=== PATIENT | male | born 1960 | race Caucasian/White ===

== ENCOUNTER 2021-01-06 07:12 | Day surgery (SDC) | payer BC ==
[~2021-01-06] VITALS: Ht 188 cm; Wt 90.7 kg
[~2021-01-06 07:12] MED LIST: ASPIRIN EC81 MG PO; IMODIUM A-D2 M2 PO; NEXIUM20 MG PO; NORCO 5-325 TA1 EACH PO; OXYCODON-ACETA1 EAC2 PO; PEPCID20 MG PO; PRILOSEC OTC20 MG PO; PRILOSEC20 MG PO; TRAMADOL HCL50 MG PO
[2021-01-06] MEDS ORDERED: COLESTID1 GM PO (07:37)
--- NOTE | 2021-01-06 08:58 | NUR ---
01/06/21 0858 Iona Elise 0853 PATIENT ARRIVES TO PACU AWAKE BUT DROWSY. RESP EVEN AND UNLABORED, NC OFF ON ARRIVAL TO PACU. PATIENT DENIES PAIN OR NAUSEA.
--- NOTE | 2021-01-07 11:49 | OR ---
[facility] [address] [place], [place] [address] Signed DATE OF OPERATION: 01/06/2021 SURGEON: Kristen Romero MD PREOPERATIVE DIAGNOSES: 1. Diarrhea probably cholecystectomy related. 2. Longstanding history of gastroesophageal reflux. POSTOPERATIVE DIAGNOSES: 1. Poor flap valve consistent with hiatal hernia. No evidence of active esophagitis. Minimal gastric polyps. 2. Normal-appearing colon. PROCEDURES: 1. Esophagogastroduodenoscopy with biopsy. 2. Total colonoscopy of cecum with biopsy of cecum and rectum. ANESTHESIA: Intravenous sedation, fentanyl 150 mcg and Versed 8 mg. INDICATIONS: This 60-year-old white man is a patient of Dr. Imtiaz William. He is known to me from the past. The patient is known to have gastroesophageal reflux and hiatal hernia. His usual regimen is to take Pepcid as needed, occasionally Prilosec, but usually he takes nothing and his symptoms are only episodic. He has no associated dysphagia currently. Additionally, the patient has undergone cholecystectomy in the past. Over time, he has developed what appeared to be post cholecystectomy diarrhea. This was well managed with Questran, subsequently colestipol. 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 He has no family history of colon cancer or of inflammatory bowel disease that we are aware of. He is admitted at this time to undergo upper endoscopy and colonoscopy. He understands the risks of bleeding, infection, perforation. FINDINGS: Upper endoscopy demonstrated a poor flap valve, but normal esophagus, only mild inflammation. The stomach with a few small hyperplastic gastric polyps. The duodenum was normal. CLOtest was negative 30 minutes post procedure. Electronically Signed By: KRISTEN ROMERO MD 01/07/21 1149 PATIENT NAME: SHIKHA LOPEZ OPERATIVE REPORT DATE OF : 60 REPORT #: [id number] PHYSICIAN: KRISTEN ROMERO MD PCP: IMTIAZ WILLIAM MD REPORT IS CONFIDENTIAL AND NOT TO BE RELEASED WITHOUT AUTHORIZATION [facility] [address] [place], [place] [address] Signed On colonoscopy, the prep was good. Complete colonoscopy was undertaken of the cecum. There was no evidence active inflammation, no diverticulosis, and certainly no polyps or cancer. Biopsies were obtained of the cecum and rectum to assess for occult colitis. PROCEDURE IN DETAIL: The patient was brought to the endoscopy suite and given topical lidocaine spray anesthesia, placed in lateral decubitus position. He was given intravenous sedation upon slurred speech and nystagmus with full cardiopulmonary monitoring. A bite block was placed. An Olympus video upper endoscope was passed into the hypopharynx. The vocal cords appeared normal. Scope was advanced to the esophagus throughout its length, it was normal without any sign of Arrington epithelium stricture, neoplasm, or varices. The scope was passed to the stomach, which was insufflated with air. Rugal folds were normal. There were few scattered very small polyps, hyperplastic in appearance. Pylorus was normal. Scope was passed through into the duodenum, which was normal. Biopsies were taken of the duodenum to assess for celiac disease. The scope was then withdrawn to the stomach and biopsies taken from the antrum and mid stomach for both DENNIS and pathologic testing. Retroflexed view was undertaken showing a poor flap valve, easily effaced by withdrawal of the scope in a J maneuver. The scope was withdrawn to the distal esophagus and biopsies obtained of that mucosa though it was normal. The midesophagus was additionally biopsied, though appeared normal. The scope was removed. Plans were then made for colonoscopy. In the lateral decubitus position, digital rectal examination was undertaken showing no anorectal abnormality. An Olympus video colonoscope was passed in the rectum and manipulated throughout the colon, ultimately intubating the cecum itself. The ileocecal valve and appendiceal orifice were normal. Biopsies were obtained to assess for occult colitis, given his diarrhea history. The scope was carefully withdrawn, examination throughout showed no sign of abnormality specifically no polyps, diverticular formation, colitis, or cancer. Retroflexed view of the rectum was normal. Biopsies were taken of the rectum to assess complete resolution of his prior proctitis. The patient was taken to recovery room in good condition. CONCLUDING DIAGNOSES: 1. Longstanding gastroesophageal reflex, not progressing. Symptom control primarily by Pepcid occasion by Prilosec. Other than operative management, this medical approach is acceptable to him at this time. 2. Colon with diarrhea, well controlled by colestipol. We would have him continue that medication. There is no evidence of colitis on the gross examination of the colon, certainly no polyps or cancer. We would recommend repeat colonoscopy in 5-10 years. Electronically Signed By: KRISTEN ROMERO MD 01/07/21 1149 PATIENT NAME: SHIKHA LOPEZ OPERATIVE REPORT DATE OF : 60 REPORT #: [id number] PHYSICIAN: KRISTEN ROMERO MD PCP: IMTIAZ WILLIAM MD REPORT IS CONFIDENTIAL AND NOT TO BE RELEASED WITHOUT AUTHORIZATION [address] [address] Signed Certainly, five years of family history of colon cancer was discovered. He will return to the ongoing care of Dr. William. MD CHANA Tai/MODL /[id number] cc: Imtiaz William MD Copies: IMTIAZ WILLIAM MD ~ Electronically Signed By: KRISTEN ROMERO MD 01/07/21 1149 PATIENT NAME: SHIKHA LOPEZ OPERATIVE REPORT DATE OF : 60 REPORT #: [id number] PHYSICIAN: KRISTEN ROMERO MD PCP: IMTIAZ WILLIAM MD REPORT IS CONFIDENTIAL AND NOT TO BE RELEASED WITHOUT AUTHORIZATION
--- NOTE | 2021-01-09 21:20 | PATH ---
[facility] [address] [place], [place] [address] Signed SPECIMEN(S): A DUODENAL BIOPSY SPECIMEN(S): B ANTRUM/PYLORUS BIOPSY SPECIMEN(S): C LOWER ESOPHAGEAL BIOPSY SPECIMEN(S): D MIDDLE ESOPHAGEAL BIOPSY SPECIMEN(S): E CECUM COLON BIOPSY SPECIMEN(S): F RECTUM SPECIMEN SOURCE: A. DUODENAL BIOPSY B. ANTRUM/PYLORUS BIOPSY C. LOWER ESOPHAGEAL BIOPSY D. MIDDLE ESOPHAGEAL BIOPSY E. CECUM COLON BIOPSY F. RECTUM CLINICAL HISTORY: EGD/colonoscopy. Reflux with esophagitis, post-cholecystectomy diarrhea, family history of colon CA. DX: Gastritis, esophagitis, hiatal hernia. MICROSCOPIC DESCRIPTION: Histologic sections of all submitted blocks are examined by light microscopy. These findings, together with the gross examination, support the pathologic diagnosis. FINAL PATHOLOGIC DIAGNOSIS: A. Duodenum, biopsy: - Peptic duodenitis. - Negative for increased intraepithelial lymphocytes or villous blunting. - Negative for dysplasia or malignancy. B. Stomach, antrum/pylorus, biopsy: - Antral mucosa with mild chronic, inactive gastritis. - Negative for Helicobacter organisms on HE stain. - Negative for dysplasia or malignancy. C. Esophagus, lower, biopsy: - Squamous mucosa with reactive changes, consistent with reflux esophagitis. - Negative for intestinal metaplasia, dysplasia or malignancy. D. Esophagus, middle, biopsy: - Squamous mucosa with no histopathologic abnormality. - Fragments of crushed gastric antral type mucosa, see comment. - Negative for increased intraepithelial eosinophils. - Negative for intestinal metaplasia, dysplasia, or malignancy. E. Colon, cecum, biopsy: PATIENT NAME: SHIKHA LOPEZ PATHOLOGY DATE OF : 60 REPORT #: [id number] PHYSICIAN: EUGENIA ALFARO PCP: IMTIAZ ARAUJO MD REPORT IS CONFIDENTIAL AND NOT TO BE RELEASED WITHOUT AUTHORIZATION [facility] [address] [place], [place] [address] Signed - Colonic mucosa with no histopathologic abnormality. - Negative for active, chronic, or microscopic colitis. - Negative for dysplasia or malignancy. F. Rectum, biopsy: - Rectal mucosa with no histopathologic abnormality. - Negative for active or chronic proctitis. - Negative for dysplasia or malignancy. COMMENT: Regarding specimen D: The crushed antral type mucosa could be tissue carryover from previous stomach biopsy. There is no evidence of malignancy. NAL:cml:C2NR GROSS DESCRIPTION: Six specimens are received in six containers, labeled "DJ." A. The specimen, labeled "DJ, 1," and designated on the requisition "duodenum," is received in formalin and consists of two foss soft tissue fragments that measure 0.4 cm in greatest dimension. The specimen is entirely submitted in cassette (A1). B. The specimen, labeled "DJ, 2," and designated on the requisition "antrum/pylorus," is received in formalin and consists of two foss soft tissue fragments that measure 0.2-0.3 cm in greatest dimension. The specimen is entirely submitted in cassette (B1). C. The specimen, labeled "DJ, 3," and designated on the requisition "lower esophagus," is received in formalin and consists of two foss soft tissue fragments that measure 0.4-0.5 cm in greatest dimension. The specimen is entirely submitted in cassette (C1). D. The specimen, labeled "DJ, 4," and designated on the requisition "middle esophagus," is received in formalin and consists of three scanty, foss soft tissue fragments that measure 0.1-0.2 cm in greatest dimension. The specimen is filtered, inked with eosin, and entirely submitted in cassette (D1). E. The specimen, labeled "DJ, 5," and designated on the requisition "cecum colon," is received in formalin and consists of one foss soft tissue fragment that measures 0.3 cm in greatest dimension. The specimen is entirely submitted in cassette (E1). F. The specimen, labeled "DJ, 6," and designated on the requisition "rectum," is received in formalin and consists of three foss soft tissue fragments that measure 0.3 cm in greatest dimension. The specimen is entirely submitted in cassette (F1). PATIENT NAME: SHIKHA LOPEZ PATHOLOGY DATE OF : 60 REPORT #: [id number] PHYSICIAN: EUGENIA ALFARO PCP: IMTIAZ ARAUJO MD REPORT IS CONFIDENTIAL AND NOT TO BE RELEASED WITHOUT AUTHORIZATION [address] [address] Signed AT (under the direct supervision of a pathologist) The Gross Description was prepared using a voice recognition system. The report was reviewed for accuracy; however, sound-alike word errors, addition and/or deletions may occur. If there is any question about this report, please contact Client Services. PERFORMING LABORATORY: The technical component was performed by [employer] [address] [place] [id number] (Machinist [employer]: Brittany Garay MD; CLIA# [id number]). Professional interpretation was performed by [employer], [address] [place] [id number] (CLIA# [id number]). Diagnostician: Zoe Hernandez MD Pathologist Electronically Signed 01/09/2021 Copies: ~ PATIENT NAME: SHIKHA LOPEZ PATHOLOGY DATE OF : 60 REPORT #: [id number] PHYSICIAN: EUGENIA PATHOLOGY PCP: IMTIAZ ARAUJO MD REPORT IS CONFIDENTIAL AND NOT TO BE RELEASED WITHOUT AUTHORIZATION
== END 2021-01-06 09:30 | disposition home or self-care (01) ==
LOC: DS 07:12 → OPS 07:12 → DS 07:15 → OPS 07:15
PROVIDERS: ATTEND Surgery
PROC: 0DB68ZZ Excision of Stomach, Via Natural or Artificial Opening Endoscopic (ICD-10-PCS; principal; 2021-01-06 08:15)
PROC: 0DBC8ZZ Excision of Ileocecal Valve, Via Natural or Artificial Opening Endoscopic (ICD-10-PCS; 2021-01-06 08:15)
DX: R19.7 Diarrhea, unspecified (principal); K21.00 Gastro-esophageal reflux disease with esophagitis, without bleeding; K29.80 Duodenitis without bleeding; K29.50 Unspecified chronic gastritis without bleeding; K31.7 Polyp of stomach and duodenum; K91.5 Postcholecystectomy syndrome; Z90.49 Acquired absence of other specified parts of digestive tract; Z87.19 Personal history of other diseases of the digestive system; Z88.6 Allergy status to analgesic agent; Z80.0 Family history of malignant neoplasm of digestive organs
CPT/HCPCS: 99153; G0500; J2250; J3010; J7121

== ENCOUNTER 2023-05-18 10:22 | Emergency (ER) | payer BC ==
[~2023-05-18] VITALS: Ht 188 cm; Wt 90.7 kg
[~2023-05-18 10:22] MED LIST changes: +COLESTID1 GM PO
[2023-05-18 11:54] VITALS: BP 128/100
== END 2023-05-18 11:56 | disposition home or self-care (01) ==
LOC: ED 10:22
DX: S09.90XA Unspecified injury of head, initial encounter (principal); W11.XXXA Fall on and from ladder, initial encounter; Z88.6 Allergy status to analgesic agent
CPT/HCPCS: 70450; 72125; 99283-25

== ENCOUNTER 2023-07-25 17:35 | Emergency (ER) | payer BC ==
[~2023-07-25] VITALS: Ht 188 cm; Wt 92.1 kg
[~2023-07-25 17:35] MED LIST changes: +CHOLESTYRAMINE P4 GM; +LEVETIRACETAM500 MG
--- OUTSIDE RECORDS SUMMARY | 2023-07-25 17:44 | XMS ---
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 - 2 Visits in 30 Days CARE PROVIDERS There are no care providers on record at this time. Sukhwinder has no Care Guidelines for this patient. Karlie VISIT COUNT (12 MO.) [address] [facility] TOTAL 5 NOTE: Visits indicate total known visits. ED/C VISIT TRACKING (12 MO.) 07/25/2023 17:36 [facility] [place] TYPE: Emergency COMPLAINT: - LT SIDED NUMBNESS 07/10/2023 10:[address] [facility] [facility] [place] TYPE: Emergency COMPLAINT: - SLURRED SPEECH, R ARM NUMBNESS DIAGNOSES: - Allergy status to analgesic agent - Anesthesia of skin - Exposure to other specified factors, initial encounter - Traumatic subdural hemorrhage without loss of consciousness, initial encounter 07/07/2023 21:47 [facility] TYPE: Emergency DIAGNOSES: - Anesthesia of skin - Traumatic subdural hemorrhage with loss of consciousness status unknown, initial encounter - Numbness 07/06/2023 13:56 [facility] TYPE: Emergency DIAGNOSES: - Traumatic subdural hemorrhage with loss of consciousness status unknown, initial encounter - Visual Field Change - Weakness [facility]23 [facility] [place] [facility] COMPLAINT: - FALL, LOSS OF CONSCIOUSNESS, SHOULDER PAIN DIAGNOSES: - Allergy status to analgesic agent - Fall on and from ladder, initial encounter - Unspecified injury of head, initial encounter INPATIENT VISIT TRACKING (12 MO.) 07/06/2023 13:56 [facility] TYPE: Critical Care DIAGNOSES: - Acute post-traumatic headache, not intractable - Traumatic subdural hemorrhage with loss of consciousness status unknown, initial encounter - Unspecified convulsions [email or web address]
[2023-07-25 18:06] LABS: BASOPHILS 0.8 % (0-2); EOSINOPHILS 1.1 % (0-6); HEMATOCRIT 40.9 % (35.0-50.0); HEMOGLOBIN 13.6 g/dL (12.0-18.0); LYMPHOCYTES 36.3 % (24-44); MCH 29.2 (27-36); MCHC 33.3 g/dl (30-36); MCV 87.5 fl (81-99); MONOCYTES 9.3 % (0-12); NEUTROPHILS 52.5 % (39-80); PLATELET COUNT 282 K/uL (140-440); RBC 4.67 M/ul (4.3-5.7); RDW 13.5 (10.5-15.0)
[2023-07-25 18:17] LABS: ALBUMIN 3.7 g/dL (3.4-5.0); ALKALINE PHOSPHATASE 125 U/L (46-116); ALT (SGPT) 102 U/L (14-59); ANION GAP 13.7 (7-21); AST (SGOT) 59 U/L (15-37); BILIRUBIN, TOTAL 0.3 ng/dL (0.2-1.0); CARBON DIOXIDE 26 mmol/L (21-32); CHLORIDE 102 mmol/L (98-107); GLOMERULAR FILTRATION RATE,EST 76 mL/min (>60); POTASSIUM 3.7 mmol/L (3.5-5.1); PROTEIN, TOTAL 7.8 g/dL (6.4-8.2); UREA NITROGEN 12 mg/dL (7-18)
[2023-07-26] MEDS ORDERED: DEXAMETHASONE2 MG PO (07:36)
[2023-07-26] MEDS ORDERED: LIPITOR20 MG PO (07:36)
[2023-07-26 08:10] VITALS: BP 121/83
[2023-07-27 21:28] LABS: PROLACTIN 10.3 ng/mL (2.1-17.7)
--- NOTE | 2023-08-01 12:16 | EKG ---
[facility] [facility] [address] [facility] [place], [place] [address] Signed Normal sinus rhythm Possible Lateral infarct , age undetermined Abnormal ECG No previous ECGs available Confirmed by Maury Franco MD ([id number]) on 07/27/2023 4:19:56 PM Electronically Signed By: MAURY FRANCO 08/01/23 1216 PATIENT NAME: SHIKHA LOPEZ EPSTEIN Electrocardiogram DATE OF : 60 PHYSICIAN: MAURY FRANCO REPORT #: [id number] REPORT IS CONFIDENTIAL AND NOT TO BE RELEASED WITHOUT AUTHORIZATION
== END 2023-07-26 08:10 | disposition home or self-care (01) ==
LOC: ED 17:35
PROVIDERS: Emergency Medicine
DX: S06.5XAA Traumatic subdural hemorrhage with loss of consciousness status unknown, initial encounter (principal); Z88.6 Allergy status to analgesic agent; Z79.899 Other long term (current) drug therapy; K21.9 Gastro-esophageal reflux disease without esophagitis; W19.XXXA Unspecified fall, initial encounter
CPT/HCPCS: 36415; 70450; 70496; 70498; 71045; 80053; 83735; 84146; 84484; 85025; 93005; 93010; 99285-25; J1100; J2270; Q9967